=== PATIENT | male | born 1980 | race African-American/Black ===

== ENCOUNTER 2016-09-16 02:23 | Emergency (ER) | payer MEDICARE, MEDICAID ==
[~2016-09-16] VITALS: Ht 175.3 cm; Wt 66.0 kg
[~2016-09-16 02:23] MED LIST: ATRITAB PO; CHLO.12%30 SWISH-SPIT; CLIN150 PO; MMW SWISH-SPIT
[2016-09-16 02:28] VITALS: BP_SYST 117; BP_DIAS 16; BP_DIAS 76; PULSE 85; RESP 16; TEMP 97.6; O2SAT 99
--- NOTE | 2016-09-16 03:21 | PD ---
HPI Chief Complaint: Oral / Dental Pain or Problem Time Seen by Provider: 03:17 Travel History International Travel<30 days: No Contact w/Intl Traveler<30days: No Traveled to known affect area: No History of Present Illness HPI Patient comes in complaining of left lower molar dental pain. Patient states he has a impacted wisdom tooth and that is the area which is causing the discomfort. Patient pain began 2 days ago the burning aching pain without radiation. Pain is worse with drinking anything. Patient has not noticed any pain with eating. Denies any known fevers, nausea, vomiting, chest pain, shortness of breath, neck pain, headaches, or difficulty swallowing. Patient reports he's been using mouthwash seems to be helping some. PFSH Past Medical History Immune Disorder: Yes (HIV+) Immunizations Current: Yes Tetanus Vaccination: Unknown Influenza Vaccination: No Social History Alcohol Use: Yes (socially) Tobacco Use: No Substance Use: No Allergies-Medications (Allergen,Severity, Reaction): Coded Allergies: No Known Allergies (Unverified , 09/16/16) Reported Meds & Prescriptions Reported Meds & Active Scripts Active Naprosyn (Naproxen) 500 Mg Tab 500 Mg PO Q12HR PRN Clindamycin (Clindamycin HCl) 150 Mg Cap 2 Tab PO Q6H 10 Days Review of Systems Except as stated in HPI: all other systems reviewed are Neg Physical Exam Narrative GENERAL: Well-developed, well nourished, in no acute distress, and non-ill appearing. SKIN: Warm and dry. HEAD: Atraumatic. Normocephalic. EYES: Pupils equal and round. EOMI. No scleral icterus. No injection or drainage. ENT: No nasal bleeding or discharge. Mucous membranes pink and moist. Tympanic membrane on the left pearly saravia. Cochlear implant noted on the right. Patient has impacted wisdom tooth on the left is tender palpation. There is no visible or palpable abscess noted. Floor of mouth, submandibular, submental are all soft to palpation. NECK: Trachea midline. No cervical lymphadenopathy. Supple. No nuclear rigidity. RESPIRATORY: No accessory muscle use. No respiratory distress. MUSCULOSKELETAL: No obvious deformities. No clubbing. No cyanosis. No edema. Full range of motion. NEUROLOGICAL: Awake and alert. No obvious cranial nerve deficits. Motor grossly within normal limits. Normal speech. PSYCHIATRIC: Appropriate mood and affect; insight and judgment normal. Data Data Last Documented VS Vital Signs Date Time Temp Pulse Resp B/P Pulse Ox O2 Delivery O2 Flow Rate FiO2 09/16/16 02:28 97.6 85 16 117/76 99 MDM Medical Decision Making Medical Screen Exam Complete: Yes Emergency Medical Condition: Yes Differential Diagnosis Dental abscess, dental infection, dentalgia, other Narrative Course The patient presented with dental pain. There is no fever. There is no significant facial swelling or evidence of cellulitis. There is no evidence of drainable abscess at this time. There is no evidence of significant deep or invading abscess at this time. The patient will be placed on antibiotics and pain medication. The patient was instructed to follow up with a dentist. The patient was given the dental referral sheet. Warnings were discussed with the patient regarding worsening of infection. The patient is to return if pain worsens, develops progressive swelling or facial redness or fever. The patient agrees with plan. Patient in no obvious distress upon re-evaluation. Patient was asked if they wanted to speak to my attending, which the patient did not wish to do at this time. Any questions/concerns in reference to patient diagnosis/condition discussed and clarified prior to patient's discharge. Reinforced sheer importance of close follow up with patient's primary physician or primary care clinic, dentist, and/or oral surgeon. Instructed patient to return to ED immediately, if symptoms return/worsen. Pt showed understanding of above instructions. Further instructions and recommendations were detailed in discharge paperwork. Pt ambulated without difficulty out of ED at discharge. Diagnosis Primary Impression: Dental infection Patient Instructions: Dental Abscess (ED), Dental Caries (DC), General Instructions Additional Instructions: Follow-up with your primary care physician and dentist as soon as possible. Rinse mouth with warm salt water gargles. Take all medication as prescribed. Return to the emergency department if symptoms get worse. Med/Other Pt SpecificInfo: Prescription(s) given Scripts Naproxen (Naprosyn)500 Mg [id number] Mg PO Q12HR PRN (PAIN SCALE 1 TO 10) #14 TAB Ref 0 Prov:Lyudmila Bedoya MD 09/16/16 Clindamycin 150 Mg Cap2 Tab PO Q6H 10 Days Ref 0 Prov:Lyudmila Bedoya MD 09/16/16 Disposition: 01 DISCHARGE HOME Condition: Stable Danny Durant Sep 16, 2016 03:21
[2016-09-16] MEDS ORDERED: NAPR500 PO (03:22)
[2016-09-16] MEDS ORDERED: CLIN1CAP5 PO (03:22)
== END 2016-09-16 03:45 | disposition home or self-care (01) ==
LOC: NEPB 02:23
DX: K04.7 Periapical abscess without sinus (principal)
CPT/HCPCS: 99282

== ENCOUNTER 2017-06-11 04:06 | Emergency (ER) | payer MEDICARE, MEDICAID ==
[~2017-06-11] VITALS: Ht 175.3 cm; Wt 61.8 kg
[~2017-06-11 04:06] MED LIST changes: -ATRITAB PO; -CHLO.12%30 SWISH-SPIT; -CLIN150 PO; +CLIN150C14 PO; -MMW SWISH-SPIT; +NAPR500 PO
[2017-06-11 04:07] VITALS: BP 134/76; PULSE 88; RESP 16; TEMP 98.1; O2SAT 99
[2017-06-11] MEDS ORDERED: EMTR1TAB5 PO (04:26)
[2017-06-11] MEDS ORDERED: BACT800T5 PO (05:31)
--- NOTE | 2017-06-11 05:31 | PD ---
HPI Chief Complaint: Injury Time Seen by Provider: 05:23 Travel History International Travel<30 days: No Contact w/Intl Traveler<30days: No Traveled to known affect area: No History of Present Illness HPI 36-year-old [id number] HIV patient with a history of hearing loss and cochlear implant presents to the ER with a painful swollen right middle finger from biting his finger nails. Pain is moderate. Worse with palpation. No alleviating factors. Up-to-date with immunizations. Denies fever chills. PFSH Past Medical History Autoimmune Disease: Yes (HIV 2011) Diminished Hearing: Yes Immune Disorder: Yes (HIV+) Immunizations Current: Yes Tetanus Vaccination: < 5 Years Influenza Vaccination: No Past Surgical History Ear Surgery: Yes (2011 Cochlear implant) Social History Alcohol Use: Yes (socially) Tobacco Use: No Substance Use: Yes (Marijuana) Allergies-Medications (Allergen,Severity, Reaction): Coded Allergies: No Known Allergies (Unverified , 09/16/16) Reported Meds & Prescriptions Reported Meds & Active Scripts Active Reported Truvada (Emtricitabine-Tenofovir Disoproxil Fumarate) 100-150 Mg Tab Unknown Dose PO DAILY Review of Systems General / Constitutional: No: Fever Eyes: No: Visual changes HENT: No: Headaches Cardiovascular: No: Chest Pain or Discomfort Respiratory: No: Shortness of Breath Gastrointestinal: No: Abdominal Pain Genitourinary: No: Dysuria Musculoskeletal: Positive: Edema, Pain, No: Myalgias, Arthralgias, Limited ROM Skin: No Rash Neurologic: No: Weakness, Paresthesia Psychiatric: No: Depression Endocrine: No: Polydipsia Hematologic/Lymphatic: No: Easy Bruising Physical Exam Narrative GENERAL: This is a well-nourished, well-developed patient, in no apparent distress. SKIN: Patient has swelling, erythema, tenderness to the tip/distal phalanx of the right middle finger. There is swelling along the radial aspect the nail bed. This is consistent with a paronychia HEAD: Atraumatic. Normocephalic. EYES: PERRL, EOMI, no discharge or injection. No scleral icterus. EARS: Clear NOSE: Nasal turbinates appear normal. THROAT: Mucosa pink and moist. Airway patent. NECK: Trachea midline. supple, moves head freely. LUNGS: Clear to auscultation. CV: Regular in rhythm. ABDOMEN: Soft nontender. EXT: No clubbing cyanosis or edema. Data Data Last Documented VS Vital Signs Date Time Temp Pulse Resp B/P (MAP) Pulse Ox O2 Delivery O2 Flow Rate FiO2 06/11/17 04:07 98.1 88 16 134/76 (95) 99 Room Air MDM Medical Decision Making Medical Screen Exam Complete: Yes Emergency Medical Condition: Yes Medical Record Reviewed: Yes Differential Diagnosis MDM: High Differential diagnoses: Abscess, folliculitis, cellulitis, lymphangitis, abrasion, contact dermatitis, paronychia Narrative Course An incision drainage has been performed. Procedures Procedure Narrative IND abscess right middle finger paronychia: Patient's given a digital block with 1% lidocaine. After adequate anesthesia all of blade is used to make a 1 cm stab incision with release of pus. The hand is cleansed and a dressing applied. Patient tolerated procedure well. No complications. Diagnosis Primary Impression: Paronychia of right middle finger Patient Instructions: General Instructions Additional Instructions: Rest. Elevation. keep clean and dry. Soak in Epsom salts 2-3 times a day. Daily wound care with soap, water and Neosporin. Three Advil every 6 hours. Bactrim DS Follow-up with a primary care doctor in one week. Return to the ER for any problems. Med/Other Pt SpecificInfo: Prescription(s) given, Wound Care Disposition: 01 DISCHARGE HOME Condition: Stable Brett Grimes Jun 11, 2017 05:31
== END 2017-06-11 06:05 | disposition home or self-care (01) ==
LOC: NEPD 04:06
DX: L03.011 Cellulitis of right finger (principal)
CPT/HCPCS: 10060

== ENCOUNTER 2017-07-29 14:25 | Emergency (ER) | payer MEDICARE, MEDICAID ==
[~2017-07-29 14:25] MED LIST changes: +BACT800T5 PO; -CLIN150C14 PO; +EMTR1TAB5 PO; -NAPR500 PO
[2017-07-29 14:27] VITALS: BP 129/77; PULSE 107; RESP 16; TEMP 99.3; O2SAT 98
--- NOTE | 2017-07-29 16:39 | RADRPT ---
EXAM DATE/TIME: 07/29/2017 15:23 [facility] COMPARISON: No previous studies available for comparison. INDICATIONS : Cough, nasal drip MEDICAL HISTORY : None. SURGICAL HISTORY : None. ENCOUNTER: Initial ACUITY: 3 days PAIN SCORE: 0/10 LOCATION: chest FINDINGS: PA and lateral views of the chest demonstrate the lungs to be symmetrically aerated without evidence of mass, infiltrate or effusion. The cardiomediastinal contours are unremarkable. Osseous structure s are intact. CONCLUSION: No acute disease. Stanton Hutton MD on July 29, 2017 at 16:37 Board Certified Radiologist. This report was verified electronically.
--- NOTE | 2017-07-29 17:34 | PD ---
HPI Chief Complaint: Cold / Flu Symptoms Time Seen by Provider: 17:33 Travel History International Travel<30 days: No Contact w/Intl Traveler<30days: No Traveled to known affect area: No History of Present Illness HPI 36-year-old male came to the emergency room with history of sore throat, cough, fever and body aches. He was concerned that he has influenza. There was a flu test done in triage which was negative. Patient has history of HIV and is on antiretroviral. Patient cannot here and can read lips. Communication was a little bit difficult. He did not appear to be in any significant distress. [facility] Past Medical History Narrative Medical List of his past medical, surgical, social and family history is reviewed from the nursing note. Autoimmune Disease: Yes (HIV 2011) Diminished Hearing: Yes Immune Disorder: Yes (HIV+) Immunizations Current: Yes Past Surgical History Ear Surgery: Yes (2011 Cochlear implant) Social History Alcohol Use: Yes (socially) Tobacco Use: No Substance Use: Yes (Marijuana) Allergies-Medications (Allergen,Severity, Reaction): Coded Allergies: No Known Allergies (Unverified Adverse Reaction, Unknown, 07/29/17) Comments No known drug allergies. Reported Meds & Prescriptions Reported Meds & Active Scripts Active Reported Truvada (Emtricitabine-Tenofovir Disoproxil Fumarate) 100-150 Mg Tab Unknown Dose PO DAILY Narrative Medication List of his home medications reviewed from the nursing note. Review of Systems Except as stated in HPI: all other systems reviewed are Neg General / Constitutional: Positive: Fever HENT: Positive: Sore Throat Musculoskeletal: Positive: Myalgias Physical Exam Narrative GENERAL: Awake, alert, no obvious distress SKIN: Focused skin assessment warm/dry. HEAD: Atraumatic. Normocephalic. EYES: Pupils equal and round. No scleral icterus. No injection or drainage. ENT: No nasal bleeding or discharge. Mucous membranes pink and moist. Pharynx no erythema or exudates NECK: Trachea midline. No JVD. CARDIOVASCULAR: Regular rate and rhythm. No murmur appreciated. RESPIRATORY: No accessory muscle use. Clear to auscultation. Breath sounds equal bilaterally. GASTROINTESTINAL: Abdomen soft, non-tender, nondistended. Hepatic and splenic margins not palpable. MUSCULOSKELETAL: No obvious deformities. No clubbing. No cyanosis. No edema. NEUROLOGICAL: Awake and alert. No obvious cranial nerve deficits. Motor grossly within normal limits. Normal speech. PSYCHIATRIC: Appropriate mood and affect; insight and judgment normal. Data Data Last Documented VS Vital Signs Date Time Temp Pulse Resp B/P (MAP) Pulse Ox O2 Delivery O2 Flow Rate FiO2 07/29/17 19:37 07/29/17 19:16 92 20 98 Room Air 07/29/17 14:27 99.3 Orders Orders Chest, Pa & Lat (07/29/17 ) Influenzae A/B Antigen (07/29/17 14:58) Complete Blood Count With Diff (07/29/17 17:37) Basic Metabolic Panel (Bmp) (07/29/17 17:37) C-Reactive Protein (Crp) (07/29/17 17:37) Blood Culture (07/29/17 17:37) Sodium Chlor 0.9% 1000 Ml Inj (Ns 1000 M (07/29/17 17:45) Ed Discharge Order (07/29/17 19:15) Labs Laboratory Tests Test 07/29/17 17:45 White Blood Count 11.6 TH/MM3 Red Blood Count 5.04 MIL/MM3 Hemoglobin 15.6 GM/DL Hematocrit 45.4 % Mean Corpuscular Volume 90.1 FL Mean Corpuscular Hemoglobin 31.0 PG Mean Corpuscular Hemoglobin Concent 34.4 % Red Cell Distribution Width 13.7 % Platelet Count 216 TH/MM3 Mean Platelet Volume 8.8 FL Neutrophils (%) (Auto) 62.9 % Lymphocytes (%) (Auto) 20.1 % Monocytes (%) (Auto) 13.9 % Eosinophils (%) (Auto) 2.3 % Basophils (%) (Auto) 0.8 % Neutrophils # (Auto) 7.3 TH/MM3 Lymphocytes # (Auto) 2.3 TH/MM3 Monocytes # (Auto) 1.6 TH/MM3 Eosinophils # (Auto) 0.3 TH/MM3 Basophils # (Auto) 0.1 TH/MM3 CBC Comment DIFF FINAL Differential Comment Blood Urea Nitrogen 9 MG/DL Creatinine 1.37 MG/DL Random Glucose 88 MG/DL Calcium Level 8.9 MG/DL Sodium Level 135 MEQ/L Potassium Level 3.8 MEQ/L Chloride Level 102 MEQ/L Carbon Dioxide Level 27.9 MEQ/L Anion Gap 5 MEQ/L Estimat Glomerular Filtration Rate 71 ML/MIN C-Reactive Protein 2.40 MG/DL MDM Medical Decision Making Medical Screen Exam Complete: Yes Emergency Medical Condition: Yes Medical Record Reviewed: Yes Differential Diagnosis Viral illness, bacterial infection secondary to immunosuppression Narrative Course 7:13 PM chest x-ray was negative as well. I ordered blood test and patient has good amount of neutrophils. I'm not concerned about immunosuppression. Given his clinical appearance I'm comfortable discharging him home. He needs to follow up with his primary care. Procedures EKG Prior to Arrival: No Diagnosis Primary Impression: Viral illness Referrals: Primary Care Physician Additional Instructions: Follow-up with your primary care physician. Return to ER if condition worsens or any other new concerns. Take Tylenol/Motrin/ibuprofen for fever. Drink lots of fluids to stay hydrated. Med/Other Pt SpecificInfo: No Change to Meds Disposition: 01 DISCHARGE HOME Condition: Stable Destin Rm MD Jul 29, 2017 17:34
[2017-07-29] MEDS ORDERED: SODIUM CHLOR 0.9% 1000 ML INJ 1,000 ML IV ONE (17:45)
[2017-07-29 18:43] LABS: AUTOMATED NEUTROPHIL # 7.3 TH/MM3 (1.8-7.7); BASOPHIL # 0.1 TH/MM3 (0-0.2); BASOPHIL % 0.8 % (0.0-2.0); EOSINOPHIL # 0.3 TH/MM3 (0-0.4); EOSINOPHIL % 2.3 % (0.0-4.0); HEMATOCRIT 45.4 % (39.0-51.0); HEMOGLOBIN 15.6 GM/DL (13.0-17.0); LYMPH % 20.1 % (9.0-44.0); LYMPHOCYTE # 2.3 TH/MM3 (1.0-4.8); MEAN CELL VOLUME 90.1 FL (80.0-100.0); MEAN CORPUSCULAR HGB CONC 34.4 % (32.0-36.0); MEAN PLATELET VOLUME 8.8 FL (7.0-11.0); MONO % 13.9 % (0.0-8.0); MONOCYTE # 1.6 TH/MM3 (0-0.9); NEUT % 62.9 % (16.0-70.0); PLATELET COUNT 216 TH/MM3 (150-450); RED BLOOD COUNT 5.04 MIL/MM3 (4.50-5.90); RED CELL DISTRIBUTION WIDTH 13.7 % (11.6-17.2); WHITE BLOOD COUNT 11.6 TH/MM3 (4.0-11.0)
[2017-07-29 19:01] LABS: BICARBONATE 27.9 MEQ/L (21.0-32.0); C-REACTIVE PROTEIN 2.4 MG/DL (0.00-0.30); CALCIUM 8.9 MG/DL (8.5-10.1); CREATININE 1.37 MG/DL (0.60-1.30)
[2017-07-29 19:16] VITALS: BP 123/77; PULSE 92; RESP 20; O2SAT 98
== END 2017-07-29 19:46 | disposition home or self-care (01) ==
LOC: NEPD 14:25
DX: B34.9 Viral infection, unspecified (principal); Z21 Asymptomatic human immunodeficiency virus [HIV] infection status
CPT/HCPCS: 71046; 80048; 85025; 86140; 87040; 87804; 96360; 96361; 99284; J7030